=== PATIENT | female | born 1955 | race Caucasian/White ===

== ENCOUNTER 2019-08-22 22:36 | Inpatient (IN) ==
[2019-08-23] MEDS ORDERED: Naloxone 0.4 MG/ML INJ IVP PRN (02:27)
[2019-08-23] MEDS ORDERED: Ondansetron 4 MG/2 ML VIAL IVP PRN (02:27)
[2019-08-23] MEDS: 0.9 % Sodium Chloride 1,000 ML IVC SCH ×2 (02:55→09:03)
[2019-08-23 06:06] LABS: Hematocrit 42.7 % (35.3-44.9); Hemoglobin 13.8 g/dL (11.5-15.4); Mean Corpuscular HGB Conc 32.3 g/dL (31.6-35.5); Mean Corpuscular Hemoglobin 31.8 pg (28.0-33.3); Mean Corpuscular Volume 98.4 fL (83.0-100.0); Mean Platelet Volume 9.8 fL (9.4-12.4); Platelet Count 311 K/mcL (140-400); Red Blood Count 4.34 M/mcL (3.82-4.97); Red Cell Distribution Width 13.1 % (11.5-14.5); White Blood Count 8.7 K/mcL (4.3-11.1)
[2019-08-23 06:50] LABS: Alanine Aminotransferase 4 Units/L (7-52); Albumin 3.5 g/dL (3.5-5.7); Albumin/Globulin Ratio 1.5 (1.1-2.2); Alkaline Phosphatase 108 Units/L (34-104); Aspartate Amino Transferase 9 Units/L (13-39); BUN/Creatinine Ratio 13 (6-26); Bilirubin,Total 0.4 mg/dL (0.3-1.0); Blood Urea Nitrogen 11 mg/dL (8-23); Calcium 8.1 mg/dL (8.6-10.3); Carbon Dioxide 27 mEq/L (23-29); Chloride 103 mEq/L (98-107); Globulin 2.4 g/dL (2.4-3.5); Glucose 112 mg/dL (70-105); Osmolality,Calculated 290 (280-300); Phosphorous 3.8 mg/dL (2.7-4.5); Potassium 3.8 mEq/L (3.5-5.1); Sodium 140 mEq/L (136-145); Total Protein 5.9 g/dL (6.4-8.9); eGFR For African Americans > 60 (> 60); eGFR For Non-African Americans > 60 (> 60)
[2019-08-23] MEDS: Nicotine 21 MG PATCH.TD24 TD SCH (09:02)
[2019-08-23] MEDS: *HR* Heparin 5,000 UNIT/ML VIAL SQ SCH ×2 (09:02→18:52)
[2019-08-23] MEDS ORDERED: Acetaminophen IV 1,000 MG/100 ML INFUS..BTL IVPB ONE (10:10)
[2019-08-23] MEDS: Nystatin Ointment 15 GM TUBE TP SCH ×3 (11:39→20:47)
[2019-08-23] MEDS: Ketorolac 15 MG/ML VIAL IVP PRN ×2 (14:52→18:59)
[2019-08-23] MEDS: Budesonide/Formoterol 160/4.5 1 PUFF INH IH SCH (21:55)
[2019-08-23] MEDS ORDERED: Albuterol 2.5 MG/3 ML NEBULIZER IH PRN (22:27)
[2019-08-24] MEDS: Ketorolac 15 MG/ML VIAL IVP PRN (02:54)
[2019-08-24] MEDS: *HR* Heparin 5,000 UNIT/ML VIAL SQ SCH ×2 (05:58→17:29)
[2019-08-24 07:24] LABS: Hemoglobin 14.4 g/dL (11.5-15.4); Mean Corpuscular HGB Conc 33.5 g/dL (31.6-35.5); Mean Corpuscular Hemoglobin 31.9 pg (28.0-33.3); Mean Corpuscular Volume 95.3 fL (83.0-100.0); Mean Platelet Volume 9.9 fL (9.4-12.4); Platelet Count 314 K/mcL (140-400); Red Blood Count 4.51 M/mcL (3.82-4.97); Red Cell Distribution Width 13.1 % (11.5-14.5); White Blood Count 9.7 K/mcL (4.3-11.1)
[2019-08-24 07:40] LABS: BUN/Creatinine Ratio 18 (6-26); Blood Urea Nitrogen 12 mg/dL (8-23); Calcium 8.7 mg/dL (8.6-10.3); Carbon Dioxide 28 mEq/L (23-29); Chloride 106 mEq/L (98-107); Glucose 107 mg/dL (70-105); Osmolality,Calculated 298 (280-300); Potassium 3.5 mEq/L (3.5-5.1); Sodium 144 mEq/L (136-145); eGFR For African Americans > 60 (> 60); eGFR For Non-African Americans > 60 (> 60)
[2019-08-24] MEDS: Budesonide/Formoterol 160/4.5 1 PUFF INH IH SCH ×2 (07:47→19:59)
[2019-08-24] MEDS ORDERED: 0.9 % Sodium Chloride 1,000 ML IVC SCH (08:00)
[2019-08-24] MEDS ORDERED: Pantoprazole 40 MG VIAL IVP SCH (09:00)
[2019-08-24] MEDS: Nicotine 21 MG PATCH.TD24 TD SCH (09:28)
[2019-08-24] MEDS: Nystatin Ointment 15 GM TUBE TP SCH ×4 (09:30→21:45)
[2019-08-24] MEDS ORDERED: TRIAMCINOLONE ACETONIDE TP PRN (14:53)
[2019-08-24] MEDS: DilTIAZem CD (24hr) 180 MG CAP.ER.24H PO SCH (15:38)
[2019-08-24] MEDS ORDERED: PARoxetine 20 MG TABLET PO SCH (21:00)
[2019-08-25] MEDS: *HR* Heparin 5,000 UNIT/ML VIAL SQ SCH ×2 (05:19→17:53)
[2019-08-25] MEDS: Budesonide/Formoterol 160/4.5 1 PUFF INH IH SCH ×2 (07:36→19:39)
[2019-08-25] MEDS ORDERED: PARoxetine 20 MG TABLET PO SCH (09:00)
[2019-08-25] MEDS: Nystatin Ointment 15 GM TUBE TP SCH ×3 (09:35→17:40)
[2019-08-25] MEDS: Nicotine 21 MG PATCH.TD24 TD SCH (09:36)
[2019-08-25] MEDS: DilTIAZem CD (24hr) 180 MG CAP.ER.24H PO SCH (09:36)
[2019-08-25 18:50] VITALS: BP 126/80
== END 2019-08-25 21:24 | disposition left against medical advice (07) | DRG 392 ==
LOC: 3ANU → SUATTDRO 08-23 02:27
PROVIDERS: ADMIT Family Medicine; ATTEND Internal Medicine

== ENCOUNTER 2021-10-19 17:27 | Observation (INO) ==
[2021-10-19] MEDS ORDERED: Chloraseptic Spray 177 ML BOTTLE MM PRN (23:10)
[2021-10-19] MEDS ORDERED: Naloxone 0.4 MG/ML INJ IVP PRN (23:11)
[2021-10-19] MEDS ORDERED: Ondansetron 4 MG/2 ML VIAL IVP PRN (23:11)
[2021-10-19] MEDS: 0.9 % Sodium Chloride 1,000 ML IVC SCH (23:30)
[2021-10-20] MEDS: Acetaminophen IV 1,000 MG/100 ML BAG IVPB SCH ×5 (00:34→23:28)
[2021-10-20] MEDS: Famotidine 20 MG/2 ML VIAL IVP SCH ×2 (04:45→17:18)
[2021-10-20 05:50] LABS: Hematocrit 42.1 % (35.3-44.9); Hemoglobin 13.7 g/dL (11.5-15.4); Mean Corpuscular HGB Conc 32.5 g/dL (31.6-35.5); Mean Corpuscular Hemoglobin 29.8 pg (28.0-33.3); Mean Corpuscular Volume 91.5 fL (83.0-100.0); Mean Platelet Volume 10.6 fL (9.4-12.4); Platelet Count 374 K/mcL (140-400); Red Cell Distribution Width 14.4 % (11.5-14.5); White Blood Count 10.6 K/mcL (4.3-11.1)
[2021-10-20 06:07] LABS: INR 1.1; Prothrombin Time 11.7 Seconds (9.4-12.1)
[2021-10-20 06:10] LABS: Activated Partial Thrombo Time 28.8 Seconds (26.0-36.0)
[2021-10-20 07:35] LABS: BUN/Creatinine Ratio 17 (6-26); Blood Urea Nitrogen 15 mg/dL (8-23); Calcium 8.6 mg/dL (8.6-10.3); Carbon Dioxide 27 mEq/L (23-29); Chloride 102 mEq/L (98-107); Chol/HDL Ratio 3.9 (0-4.9); Cholesterol 167 mg/dL (< 200); Glucose 106 mg/dL (70-105); HDL Cholesterol 43 mg/dL (40-59); LDL Cholesterol,Calculated 102 mg/dL (< 100); Magnesium 1.8 mg/dL (1.6-2.6); Osmolality,Calculated 289 (280-300); Potassium 3.5 mEq/L (3.5-5.1); Sodium 139 mEq/L (136-145); Thyroid Stimulating Hormone 4.496 mcIU/mL (0.340-5.600); Triglycerides 112 mg/dL (< 150); Troponin I < 0.03 ng/mL (< 0.04); eGFR For African Americans > 60 (> 60); eGFR For Non-African Americans > 60 (> 60)
[2021-10-20] MEDS ORDERED: *HR* Metoprolol 5 MG/5 ML VIAL IVP PRN (08:25)
[2021-10-20] MEDS: 0.9 % Sodium Chloride 1,000 ML IVC SCH ×2 (12:27→23:28)
[2021-10-20] MEDS ORDERED: Budesonide/Formoterol 160/4.5 1 PUFF INH IH PRN (13:05)
[2021-10-20] MEDS: Nystatin POWDER 30 GM BOTTLE TP SCH ×2 (18:02→21:51)
[2021-10-21] MEDS: Famotidine 20 MG/2 ML VIAL IVP SCH ×2 (05:26→18:33)
[2021-10-21] MEDS: Acetaminophen IV 1,000 MG/100 ML BAG IVPB SCH ×2 (05:26→13:18)
[2021-10-21 06:19] LABS: Basophils # 0.1 K/mcL (0.0-0.2); Basophils % 0.5 %; Eosinophils # 0.2 K/mcL (0.0-0.6); Eosinophils % 1.6 %; Hematocrit 39.4 % (35.3-44.9); Hemoglobin 12.5 g/dL (11.5-15.4); Immature Granulocytes % 0.4 % (0-4); Lymphocytes # 1.3 K/mcL (0.6-4.6); Lymphocytes % 11.5 %; Mean Corpuscular HGB Conc 31.7 g/dL (31.6-35.5); Mean Corpuscular Hemoglobin 29.1 pg (28.0-33.3); Mean Corpuscular Volume 91.6 fL (83.0-100.0); Mean Platelet Volume 10.8 fL (9.4-12.4); Monocytes % 9.1 %; Neutrophils # 8.8 K/mcL (1.6-8.9); Platelet Count 356 K/mcL (140-400); Red Cell Distribution Width 14.1 % (11.5-14.5); Segmented Neutrophils % 76.9 %; White Blood Count 11.4 K/mcL (4.3-11.1)
[2021-10-21 06:39] LABS: BUN/Creatinine Ratio 17 (6-26); Blood Urea Nitrogen 13 mg/dL (8-23); Calcium 8.6 mg/dL (8.6-10.3); Carbon Dioxide 27 mEq/L (23-29); Chloride 104 mEq/L (98-107); Glucose 81 mg/dL (70-105); Osmolality,Calculated 289 (280-300); Potassium 3.3 mEq/L (3.5-5.1); Sodium 140 mEq/L (136-145); eGFR For African Americans > 60 (> 60); eGFR For Non-African Americans > 60 (> 60)
[2021-10-21] MEDS: Nystatin POWDER 30 GM BOTTLE TP SCH ×3 (09:42→19:59)
[2021-10-21] MEDS ORDERED: Potassium Chloride Elixir 20 MEQ/15 ML UDC PO ONE (13:05)
[2021-10-21] MEDS: 0.9 % Sodium Chloride 1,000 ML IVC SCH ×2 (13:19→23:35)
[2021-10-21] MEDS ORDERED: Acetaminophen 325 MG TABLET PO PRN (16:42)
[2021-10-22] MEDS: Famotidine 20 MG/2 ML VIAL IVP SCH (05:31)
[2021-10-22 05:53] LABS: Basophils # 0.1 K/mcL (0.0-0.2); Basophils % 0.6 %; Eosinophils # 0.3 K/mcL (0.0-0.6); Eosinophils % 2.9 %; Hematocrit 37.5 % (35.3-44.9); Hemoglobin 12.2 g/dL (11.5-15.4); Immature Granulocytes % 0.5 % (0-4); Lymphocytes # 1.3 K/mcL (0.6-4.6); Lymphocytes % 13.4 %; Mean Corpuscular HGB Conc 32.5 g/dL (31.6-35.5); Mean Corpuscular Volume 92.4 fL (83.0-100.0); Mean Platelet Volume 10.8 fL (9.4-12.4); Monocytes # 0.8 K/mcL (0.0-1.3); Monocytes % 8.4 %; Neutrophils # 7.2 K/mcL (1.6-8.9); Platelet Count 327 K/mcL (140-400); Red Blood Count 4.06 M/mcL (3.82-4.97); Red Cell Distribution Width 14.2 % (11.5-14.5); Segmented Neutrophils % 74.2 %; White Blood Count 9.7 K/mcL (4.3-11.1)
[2021-10-22 06:08] LABS: BUN/Creatinine Ratio 14 (6-26); Blood Urea Nitrogen 10 mg/dL (8-23); Calcium 8.4 mg/dL (8.6-10.3); Carbon Dioxide 28 mEq/L (23-29); Chloride 106 mEq/L (98-107); Glucose 99 mg/dL (70-105); Osmolality,Calculated 291 (280-300); Potassium 3.4 mEq/L (3.5-5.1); Sodium 141 mEq/L (136-145); eGFR For African Americans > 60 (> 60); eGFR For Non-African Americans > 60 (> 60)
[2021-10-22 07:35] VITALS: BP 157/93; PULSE 83; TEMP 98.4; O2SAT 94
[2021-10-22] MEDS ORDERED: *HR* OxyCODONE/APAP 7.5/325 TABLET PO PRN (07:48)
[2021-10-22] MEDS ORDERED: hydroCHLOROthiazide 25 MG TABLET PO SCH (09:00)
[2021-10-22] MEDS ORDERED: DilTIAZem CD (24hr) 180 MG CAP.ER.24H PO SCH (09:00)
[2021-10-22] MEDS: Nystatin POWDER 30 GM BOTTLE TP SCH (09:27)
== END 2021-10-22 11:08 | disposition home or self-care (01) ==
LOC: 3ANU → SUATTDRO 20:31
PROVIDERS: ADMIT Internal Medicine; ATTEND Family Medicine